=== PATIENT | male | born 1960 | race Caucasian/White ===

== ENCOUNTER 2018-05-10 00:07 | Inpatient (IN) | payer BC ==
[2018-05-10] MEDS ORDERED: Morphine 2 MG/ML SYRINGE ONE (01:20)
[2018-05-10] MEDS ORDERED: Morphine 2 MG/ML SYRINGE SLOW IVP PRN (04:32)
[2018-05-10] MEDS ORDERED: Acetaminophen 325 MG TAB PO PRN (04:33)
[2018-05-10] MEDS ORDERED: Ondansetron ODT 4 MG TAB SL PRN (04:33)
[2018-05-10] MEDS ORDERED: Ondansetron PF 4 MG/2 ML Vial IVP PRN ×3 (04:33→19:28)
[2018-05-10 04:59] VITALS: BMI 43.2
[2018-05-10 10:45] LABS: Hemoglobin 14.8 g/dL (14.0-18.0); Mean Corpuscular HGB CONC 33.6 g/dL (32.0-36.0); Mean Corpuscular Volume 95.4 fL (78.0-98.0); Mean Platelet Volume 8.1 fL (7.4-10.4); Platelet Count 187 thou/uL (130-400); RBC Distribution Width 12.2 % (11.5-14.5); Red Blood Cell (RBC) Count 4.63 mill/uL (4.70-6.10); White Blood Cell (WBC) Count 20.4 thou/uL (4.8-10.8)
[2018-05-10 10:54] LABS: Hemoglobin A1c 5.5 % (4.0-6.0)
[2018-05-10 10:55] LABS: Band 15 % (5-11); Lymphocytes 12 % (21-51); MDiff Complete? YES; Monocytes 10 % (0-10); Neutrophil 63 % (42-75); RBC Morphology Normal
[2018-05-10] MEDS: cefTRIAXone\\ROCEPHIN 1 GM in Sodium Chloride 0.9% 100 ML IVPB SCH (11:07)
--- NOTE | 2018-05-10 11:07 | RAD ---
PA AND LATERAL CHEST: History: Pre-operative evaluation. Shortness of breath. FINDINGS: The heart is enlarged. The aorta is tortuous. No lobar consolidation, pneumothoraces, kendal pulmonary edema or large pleural effusions are seen. There are degenerative changes of the spine. IMPRESSION: Cardiomegaly. POS: [facility]
[2018-05-10 11:23] LABS: Troponin I Less than 0.010 ng/mL (< 0.028)
[2018-05-10] MEDS ORDERED: cefTRIAXone\\ROCEPHIN 1 GM VIAL ONE ×2 (11:28→18:20)
--- NOTE | 2018-05-10 11:29 | HP ---
CHIEF COMPLAINT: Abdominal pain. HISTORY: Mr. Avendaño is a 57-year-old man who presented to his local emergency room with abdominal pa in, nausea, and vomiting. He states that he had been ill for over a week and at first he thought it was food poisoning and it seemed to get better, but then it came back and was more severe. He was in bed for 3 days, unable to eat because of the nausea and the pain, but then that seemed to relent yovanny ewhat, so he got back up and tried to eat again. Each time he tried to eat, the pain got worse and t he nausea got worse and on the night of his admission, he states that the pain got even more severe t cullen usual and he was having chills and fevers, so he came into the emergency room. He states that he has had alternating diarrhea and constipation throughout his illness and that when he did try to eat everything, but solid made the pain get worse. He has not had any jaundice or icterus that he has n oticed, but he has had shaking chills and fevers, although he did not take his temperature. The pain has always been present since its onset, although the severity has varied somewhat. He is most comf ortable when he is lying on his left side. The pain is located mostly under his right ribcage, but r adiates around his entire abdomen. He states that when he had the diarrhea, sometimes it was dark in color, but sometimes it was normal. He has tried ibuprofen, Tylenol and Pepto-Bismol to release the pain, but nothing has been effective. PAST MEDICAL HISTORY: Hypertension, hyperlipidemia, and borderline diabetes. He states that he was on medication for cholesterol and blood pressure, but that he took himself off of it and his numbers were still good, so he has not restarted them. He has been to see a doctor or have his numbers check ed in 5 years, however. He denies any cardiac history, but states that he did have an episode where he was admitted to a different hospital for his heart racing. He states that he was told it was kaylah use of his sodium level being too high from eating wings and that they gave him a lot of medications to bring it under control. He states that at one point they put an IV into his medication and he had a cardiac arrest of some sort, but came back from it before they had to do chest compressions or adm inister shocks. He does not know what the medication was and his states that they were told jackelyn t it was not the medication itself that cause this, but air in the IV tubing. He does not have any k nown history of heart disease and has never had a heart attack or stroke that he knows of, but his fa ther did have heart disease and had to have heart stents in his 40s. FAMILY HISTORY: Positive for coronary artery disease in his father, onset in his 40s, mini strokes i n his mother. SOCIAL HISTORY: He does not smoke or drink or use illicit drugs, but is exposed to secondhand smoke through his . MEDICATIONS: None except for dkpo-vxw-pniaqke remedies over the last week. ALLERGIES: He reports an allergy to PENICILLIN, but has not taken it since he was a child. He state s that it causes swelling and hives. PAST SURGICAL HISTORY: Ear tubes and tonsillectomy as a child. REVIEW OF SYSTEMS: Ten system review of system is negative except per HPI and the following. He sta homar that he has had whole body aches and that he has been somewhat short of breath as the onset of th is illness and weak and tired. He denies any chest pain or dyspnea on exertion or orthopnea. PHYSICAL EXAMINATION: VITAL SIGNS: T-max 99.6, T-current 98.4, heart rate 96, respirations 20, 92% saturated on room air, blood pressure 184/101. GENERAL: Reveals a pleasant gentleman who appears older than his stated age. He is not in any acute distress. He is not flushed or toxic in appearance. He is not jaundiced or icteric. HEENT: Unremarkable. NECK: Supple, without lymphadenopathy or thyroid nodules. HEART: Regular in its rate and rhythm without murmurs, rubs or gallops. LUNGS: Clear to auscultation, although breath sounds are very distant due to body habitus. ABDOMEN: Soft, obese, and slightly distended. He is very tender to palpation in the right upper ozzy drant and moderately diffusely tender to palpation. No palpable masses or hernias. EXTREMITIES: Warm and well perfused without edema. I cannot palpate pedal pulses, but he has strong popliteal pulses, no edema. NEUROLOGIC: No focal deficits. PSYCHIATRIC: Alert, oriented, and appropriate. LABORATORY DATA: White count is elevated at 16 with a left shift. Hematocrit is 43, and platelets a re 241. Electrolytes are unremarkable except for slightly low bicarbonate of 19 and a slightly eleva janine glucose of 139, bilirubin was elevated at 1.4, AST 74, ALT 77. Lipase was normal at 67. CT of t he abdomen and pelvis obtained in [place] showed an enlarged gallbladder with pericholecystic strand ing and gallstones in the gallbladder neck. He also had a fatty liver noted. No common bile duct di latation was seen and the bowel appeared grossly normal except for diverticula. ASSESSMENT: Cholelithiasis and cholecystitis. The patient was started on IV antibiotics at the outs [facility] and we will continue these. He tolerated ceftriaxone and Flagyl without any problems, so I wi ll opt to continue these. He will require laparoscopic cholecystectomy. He has a relatively high ri sk for open cholecystectomy given the severity and persistence of his symptoms over a week. If he freedman s significant infection of his gallbladder, he may require drain placement. If he has an abnormal ch olangiogram, he may require ERCP. The procedure and its inherent risks were discussed with the patie nt. These include, but are not limited to bleeding, infection, risks of anesthesia, damage to nearby structures including bowel, liver and bile duct, and need for other procedures. He understands and accepts these risks and wishes to proceed and is on the OR schedule for later today. He did not rece va any sort of cardiac workup in either ER, so I have ordered an EKG, chest x-ray and troponins, but I do not think he has any acute cardiac issue. He also has significant hypertension and has not bee n to see a doctor in 5 years, so I will ask the Hospitalist Service to see him. However, some of hyp ertension may be related to his acute illness.
[2018-05-10 11:34] LABS: ALT (SGPT) 77 U/L (8-55); AST (SGOT) 55 U/L (5-34); Albumin 3.6 g/dL (3.5-5.0); Alkaline Phosphatase 125 U/L (40-150); Anion Gap 17 mmol/L (10-20); BUN (Urea Nitrogen) 12 mg/dL (8.4-25.7); Bilirubin, Total 1.4 mg/dL (0.2-1.2); Calc. Creatinine Clearance 192 mL/min (70-130); Calcium 9.2 mg/dL (7.8-10.44); Carbon Dioxide 21 mmol/L (22-29); Chloride 103 mmol/L (98-107); Estimated GFR-MDRD Greater than 90; Globulin 3.8 g/dL (2.4-3.5); Glucose 119 mg/dL (70-105); Lipase 43 U/L (8-78); Potassium 3.7 mmol/L (3.5-5.1); Protein, Total 7.4 g/dL (6.0-8.3); Sodium 137 mmol/L (136-145)
--- NOTE | 2018-05-10 13:07 | PDOC.PN ---
- Subjective Encounter Start Date: 05/10/18 Encounter Start Time: 13:06 -: old records requested/rev pt seen in day stay before surgery, he has RUQ abdominal pain, he has very high BP and he is febrile, history obtained from him - Objective MAR Reviewed: Yes Vital Signs & Weight: Vital Signs (12 hours) Temp Pulse Resp BP Pulse Ox 05/10/18 11:48 99.9 F H 99 24 H 202/110 H 92 L 05/10/18 07:27 98.4 F 96 20 184/101 H 92 L 05/10/18 04:26 99.6 F 91 20 167/95 H 95 Weight Weight 301 lb I&O: 05/09/18 05/10/18 05/11/18 06:59 06:59 06:59 Intake Total 0 Output Total 350 Balance -350 Result Diagrams: 05/10/18 10:33 05/10/18 10:33 Radiology Reviewed by me: Yes (chest xray -cardiomegaly) EKG Reviewed by me: Yes (EKG- NSR, nonspecific changes) Phys Exam - Physical Examination Constitutional: NAD HEENT: PERRLA, moist MMs, sclera anicteric poor dentition Neck: no nodes, no JVD, supple, full ROM Respiratory: no wheezing, no rales, no rhonchi Cardiovascular: RRR, no significant murmur, no rub tachycardia Gastrointestinal: soft, no distention, positive bowel sounds obesity+ RUQ tenderness Musculoskeletal: no edema, pulses present Neurological: non-focal, normal sensation, moves all 4 limbs Lymphatic: no nodes Psychiatric: normal affect, A&O x 3 Skin: no rash, normal turgor Dx/Plan (1) Sepsis Code(s): A41.9 - SEPSIS, UNSPECIFIED ORGANISM Status: Acute Comment: due to acute cholecystitis (2) Acute cholecystitis Code(s): K81.0 - ACUTE CHOLECYSTITIS Status: Acute Comment: with abnormal LFT, and clinically RUQ pain, fever with sepsis criteria, on rocephin and flagyl , planned for lap serge today (3) Morbid obesity with BMI of 40.0-44.9, adult Code(s): E66.01 - MORBID (SEVERE) OBESITY DUE TO EXCESS CALORIES; Z68.41 - BODY MASS INDEX (BMI) 40.0-44.9, ADULT Status: Chronic Comment: dietary education and weight loss education given (4) Hypertension Code(s): I10 - ESSENTIAL (PRIMARY) HYPERTENSION Status: Chronic Comment: with hypertensive urgency due to his level of pain, will monitor and start antihypertensive meds this admission (5) Dyslipidemia Code(s): E78.5 - HYPERLIPIDEMIA, UNSPECIFIED Status: Chronic - Plan cont current plan of care, continue antibiotics, incentive spirometry * continue rocephin and flagyl * today lap serge * medically cleared for surgery * will need pain control * will start amlodipine 10 mg po daily after surgery once oral intake resumed, currently NPO for surgery * pt meets inpt criteria if not planned for discharge after surgery, will defer to primary team * medication reviewed as below * symptomatic treatment. * repeat labs tomorrow * code status-full code Review of Systems - Review of Systems Constitutional: fever, weakness Eyes: negative: Pain, Vision Change, Conjunctivae Inflammation, Eyelid Inflammation, Redness, Other ENT: negative: Ear Pain, Ear Discharge, Nose Pain, Nose Discharge, Nose Congestion, Mouth Pain, Mouth Swelling, Throat Pain, Throat Swelling, Other Respiratory: negative: Cough, Dry, Shortness of Breath, Hemoptysis, SOB with Excertion, Pleuritic Pain, Sputum, Wheezing Cardiovascular: negative: chest pain, palpitations, orthopnea, paroxysmal nocturnal dyspnea, edema, light headedness, other Gastrointestinal: Nausea, Vomiting, Abdominal Pain. negative: Diarrhea, Constipation, Melena, Hematochezia, Other Genitourinary: negative: Dysuria, Frequency, Incontinence, Hematuria, Retention , Other Musculoskeletal: negative: Neck Pain, Shoulder Pain, Arm Pain, Back Pain, Hand Pain, Leg Pain, Foot Pain, Other Skin: negative: Rash, Lesions, Abe, Bruising, Other Neurological: negative: Weakness, Numbness, Incoordination, Change in Speech, Confusion, Seizures, Other - Medications/Allergies Allergies/Adverse Reactions: Allergies Allergy/AdvReac Type Severity Reaction Status Date / Time Penicillins Allergy swelling Verified 05/10/18 04:56 Medications: Current Medications Ceftriaxone Sodium 1 gm/ (Sodium Chloride) 100 mls @ 200 mls/hr IVPB Q24HR AMBROSE Last Admin: 05/10/18 11:07 Dose: 100 mls Metronidazole 500 mg/ Device 100 mls @ 100 mls/hr IVPB Q6HR AMBROSE Sodium Chloride (Flush - Normal Saline) 10 ml IVF Q12HR AMBROSE Last Admin: 05/10/18 11:07 Dose: 10 ml Sodium Chloride (Flush - Normal Saline) 10 ml IVF PRN PRN PRN Reason: Saline Flush Last Admin: 05/10/18 05:26 Dose: 10 ml
[2018-05-10] MEDS ORDERED: cloNIDine 0.1 MG TAB PO PRN (13:13)
[2018-05-10] MEDS ORDERED: Senokot S 8.6-50 MG TAB PO PRN (13:13)
[2018-05-10] MEDS ORDERED: Sodium Chloride 0.65% Nasal 44 ML BOT EA NARE PRN (13:13)
[2018-05-10] MEDS ORDERED: Diabetic Tussin 200 MG/10 ML UDCUP PO PRN (13:13)
[2018-05-10] MEDS ORDERED: Loratadine 10 MG TAB PO PRN (13:13)
[2018-05-10] MEDS ORDERED: Bisacodyl 5 MG TAB PO PRN (13:13)
[2018-05-10] MEDS ORDERED: Loperamide HCl 2 MG CAP PO PRN (13:13)
[2018-05-10] MEDS ORDERED: Cepastat Lozenges 1 LOZ PO PRN (13:13)
[2018-05-10] MEDS ORDERED: Eucerin (Mineral Oil/Petrolatum,White) 30 gm Jar TOP PRN (13:13)
[2018-05-10] MEDS ORDERED: Zolpidem Tartrate 5 MG TAB PO PRN ×2 (13:13→19:28)
[2018-05-10] MEDS ORDERED: Ibuprofen 200 MG TAB PO PRN (13:13)
[2018-05-10] MEDS ORDERED: Artificial Tears 18 DROP/0.9 ML EA EYE PRN (13:13)
[2018-05-10] MEDS ORDERED: Acetaminophen 500 MG TAB PO PRN (13:13)
[2018-05-10] MEDS ORDERED: Bupivacaine/Epinephrine 0.25% 30 ML VIAL ONE ×2 (13:59→18:50)
[2018-05-10] MEDS ORDERED: Midazolam HCl 2 mg/2 ml Vial ONE (14:05)
[2018-05-10] MEDS ORDERED: Fentanyl 100 MCG/2 ML VIAL ONE ×2 (14:05→18:56)
[2018-05-10] MEDS ORDERED: Iothalamate Meglumine 60% 50 ML VIAL FS ONE (14:51)
[2018-05-10] MEDS ORDERED: Vecuronium 10 MG VIAL ONE (14:55)
[2018-05-10] MEDS ORDERED: ePHEDrine/0.9% NaCl/PF SYRINGE 50 mg/10 ml ONE (14:55)
[2018-05-10] MEDS ORDERED: Succinylcholine Chloride 20 MG/ML 10 ml SYRINGE FS ONE (14:55)
[2018-05-10] MEDS ORDERED: Lidocaine 1% PF 5 ML VIAL ONE (14:55)
[2018-05-10] MEDS ORDERED: Calcium Chloride 1 GM/10 ML Abboject SYRINGE ONE ×2 (14:55→17:29)
[2018-05-10] MEDS ORDERED: Ondansetron PF 4 MG/2 ML Vial ONE (14:55)
[2018-05-10] MEDS ORDERED: PHENYLEPHRINE-NS 100 MCG/ML 10 ML SYRINGE ONE ×2 (14:55→17:23)
[2018-05-10] MEDS ORDERED: Glycopyrrolate 0.2 MG/ML 5 ML SYRINGE ONE (14:55)
[2018-05-10] MEDS ORDERED: Ketorolac Tromethamine 30 MG/ML VIAL ONE (14:55)
[2018-05-10] MEDS ORDERED: PROPOFOL 200 MG/20 ML VIAL ONE (14:55)
[2018-05-10] MEDS ORDERED: Phenylephrine HCL 10 MG/ML VIAL ONE (17:23)
[2018-05-10] MEDS ORDERED: Sodium Chloride 0.9% 10 ML ONE (17:53)
[2018-05-10] MEDS ORDERED: metroNIDAZOLE 500 MG/100 ML BAG ONE (18:20)
[2018-05-10] MEDS ORDERED: SUGAMMADEX SODIUM 500 MG/5 ML VIAL ONE (19:04)
[2018-05-10] MEDS ORDERED: SUGAMMADEX SODIUM 200 MG/2 ML VIAL ONE (19:04)
[2018-05-10] MEDS ORDERED: Naloxone HCl 0.4 mg/ml Vial IV PRN (19:28)
[2018-05-10] MEDS ORDERED: Promethazine HCl 25 MG/ML VIAL IM PRN ×2 (19:28)
[2018-05-10] MEDS ORDERED: fentaNYL Citrate/PF 2,000 MCG in Sodium Chloride 0.9% 60 ML IV PRN (19:28)
[2018-05-10] MEDS ORDERED: diphenhydrAMINE 50 MG/ML VIAL IVP PRN (19:28)
[2018-05-10] MEDS ORDERED: Ondansetron HCl/PF 4 MG/2 ML Vial IVP PRN (19:28)
[2018-05-10] MEDS ORDERED: diphenhydrAMINE 25 MG CAP PO PRN (19:28)
[2018-05-10] MEDS ORDERED: diphenhydrAMINE 50 MG/ML VIAL IM PRN (19:28)
[2018-05-10] MEDS ORDERED: Promethazine HCl 25 MG/ML VIAL SLOW IVP PRN (19:28)
[2018-05-10] MEDS ORDERED: Communication Order-Pharmacy FS SCH (19:30)
[2018-05-10] MEDS: metroNIDAZOLE 500 MG in Premix Bag 1 BAG IVPB SCH (19:37)
--- NOTE | 2018-05-10 19:54 | RAD ---
INTRAOPERATIVE CHOLANGIOGRAM 05/10/18 INDICATION: Cholecystectomy. COMPARISON: Prior CT of the abdomen and pelvis dated 05/09/18. FLUOROSCOPIC TIME: 22 seconds. TOTAL EXPOSURE: 13.3 mGy. FINDINGS: Submitted images demonstrate canalization of the cystic duct. There is application of the common bile duct with flow into the duodenum. There is retrograde opacification of the common hepatic duct and i ntrahepatic biliary duct. No definite intraluminal filling defect is evident. IMPRESSION: No definite intraluminal filling defect demonstrated to suggest a common bile duct stone. POS: [facility]
--- NOTE | 2018-05-10 21:53 | RAD ---
CHEST ONE VIEW: 05/10/17 INDICATION: History of cholecystectomy. FINDINGS: There are new bibasilar air space opacities. There is a new right IJ central venous catheter. No pneu mothorax is evident. Cardiomegaly persists. Osseous structures are unchanged. IMPRESSION: 1. New bibasilar air space opacity may reflect subsegmental volume loss. Component of aspiration cannot be entirely excluded. Would recommend radiographic followup. 2. Right IJ central venous catheter projecting in the region of the SVC. No pneumothorax demonst rated. POS: [facility]
[2018-05-11] MEDS: Famotidine/PF 20 mg/2ml Vial SLOW IVP SCH ×3 (00:42→21:23)
[2018-05-11] MEDS: metroNIDAZOLE 500 MG in Premix Bag 1 BAG IVPB SCH ×5 (00:43→23:42)
[2018-05-11] MEDS: Lactated Ringer's 1,000 ML IV SCH ×3 (00:43→18:38)
--- NOTE | 2018-05-11 05:06 | OP ---
PROCEDURE: Laparoscopic converted to open cholecystectomy with cholangiogram. SURGEON: Shila Mcdaniels M.D. AGENT CONTRACT CLERK: Rosales Lara M.D. PREOPERATIVE DIAGNOSES: Cholelithiasis and cholecystitis. POSTOPERATIVE DIAGNOSES: Cholelithiasis and cholecystitis, severe and gangrenous. HISTORY OF PRESENT ILLNESS: Mr. Avendaño is a 57-year-old man with an over 1 week history of severe ab dominal pain and nausea. He was found to have evidence of severe cholecystitis on CT and recommendat ion was made to proceed with laparoscopic cholecystectomy with intraoperative cholangiogram due to mi ldly elevated LFTs. PROCEDURE IN DETAIL: After informed consent was obtained and appropriate preoperative antibiotics co ntinued, the patient was taken to the operating room. He was placed in supine position and general e ndotracheal anesthesia was administered. He was prepped and draped in a standard sterile fashion and local anesthesia infused to the skin and subcutaneous tissues at the level of the umbilicus. Transv erse skin incision was made. The fascia was elevated and a Veress needle placed into the abdominal c avity without difficulty. Opening pressure was less than 5 and carbon dioxide gas easily insufflated to an intra-abdominal pressure of 15, which the patient tolerated well. The Veress needle was withd rawn and a Coyle port advanced under direct vision into the abdominal cavity, which was carefully examined. There was no evidence of Veress needle or of trocar injury and no adhesions at the level of the umbilicus, but the gallbladder was noted to be completely obscured by omental adhesions. Loca l anesthesia was infused to the skin and subcutaneous tissues at the epigastric, right upper quadrant , and right lateral abdominal sites and trocars were placed under direct vision of the gallbladder. The omentum was able to be dissected off of the gallbladder using blunt dissection through the avascu lar plane. These adhesions appeared to be subacute in nature and the gallbladder was hemorrhagic, in flamed and appeared necrotic in areas. It was too tight to grasp so over 150 mL of purulent appearin g bile were aspirated from the gallbladder. This was sent for Gram stain and culture. Following thi s, the fundus was able to be grasped and dissection carried down toward the infundibulum which was gr asped and retracted laterally. The serosa was stripped inferiorly at this level and the duct started to be identified; however, as dissection was carried out medial to this, we try to identify the cyst ic artery. There was profuse arterial bleeding. This was unable to be controlled with clips, but wa s able to be controlled with a clamp. However, due to difficulty seeing this area well laparoscopica lly, the decision was made to convert to an open procedure leaving the clamp in place and carefully o bserving to make sure that there was no ongoing bleeding. The skin was incised between the epigastri c and the right upper quadrant trocar sites and dissection carried down using Bovie electrocautery th rough the anterior rectus sheath. The rectus muscle was divided and the posterior sheath also divide d entering the abdomen, the trocars removed, but the clamp was left in place. Dissection was carried down through the gallbladder bed using a Bovie electrocautery proceeding from the fundus toward the infundibulum. A Bookwalter retractor was placed to obtain exposure of the operative field and the ar ea of the clamp where the previous bleeding had been noted was carefully monitored to make sure that there was no recurrent bleeding. Even after completely freeing the gallbladder from the gallbladder bed; however, visualization of the area which had previously been bleeding was quite difficult, so Dr Og Lara was consulted to assist with the case. As additional retractors were being placed to try to gain better visualization of this area, recurrent bleeding was noted where the clamp was in place. T he clamp was removed and pressure held with a sponge stick in this area. There was some continued bl eeding; however, which was arterial in nature. Additional long instruments and clamps were obtained and several attempts made to place a clamp on the area of bleeding without success. Pressure was hel d with a sponge stick as additional retractors were obtained. Finally, the area of the bleeding was able to be adequately expose that appeared to be a slight injury to the hepatic artery where the cyst ic artery had likely avulsed off of it. During dissection due to the severely fibrotic nature of the tissues in that area, a clamp was able to be placed over the area of bleeding and the bleeding was u ncontrolled; however, during this time. The patient had lost almost a liter of blood so blood and FF P was ordered and the massive transfusion protocol instituted and a right internal jugular catheter p laced using ultrasound guidance using the Seldinger technique to assist in resuscitation. Once the p atient was stabilized and transfused and all equipment was ready, a 2-0 suture was used to close the side hole in the artery with excellent technical result and cessation of all bleeding. Attention was then turned to the completion of the cholecystectomy. The neck of the gallbladder had been dissecte d free, so the top portion of the gallbladder was resected and a cholangiogram placed into the cystic duct from the inside of the gallbladder and clamped with a right-angle across the neck of the gallbl adder. The cholangiogram was obtained which showed good filling of the common bile duct with free fl ow into the duodenum as well as normal retrograde flow up past the bifurcation. No filling defects o r obstruction were seen. A Vicryl tie was secured around the neck of the gallbladder and the remaind er of the gallbladder was resected and sent with the specimen. The wound was irrigated and hemostasi s confirmed. A KAYLEY drain was placed through the right lateral trocar site and placed in the bed of th e gallbladder and secured to the skin with a suture. Seprafilm was placed and the posterior sheath w as closed under direct vision with a PDS suture. Irrigation was again carried out and the anterior s jose closed with another layer of PDS suture. Subcutaneous tissues were irrigated and additional lo vern anesthesia infused for postoperative pain management. The subcutaneous tissues were approximated interrupted with 3-0 Vicryl sutures, and the skin incisions were all closed with skin mitchell. Ster ile dressings were placed and the patient was extubated and taken to recovery in good condition. Est imated blood loss was 1 liter. SPECIMEN: Gallbladder and contents with bile sent for Gram stain and culture.
[2018-05-11 06:07] LABS: ALT (SGPT) 324 U/L (8-55); AST (SGOT) 519 U/L (5-34); Albumin 2.8 g/dL (3.5-5.0); Alkaline Phosphatase 97 U/L (40-150); Anion Gap 17 mmol/L (10-20); BUN (Urea Nitrogen) 15 mg/dL (8.4-25.7); Bilirubin, Total 1.3 mg/dL (0.2-1.2); Calc. Creatinine Clearance 197 mL/min (70-130); Calcium 8.6 mg/dL (7.8-10.44); Carbon Dioxide 17 mmol/L (22-29); Chloride 109 mmol/L (98-107); Estimated GFR-MDRD Greater than 90; Glucose 112 mg/dL (70-105); Potassium 4.8 mmol/L (3.5-5.1); Protein, Total 5.8 g/dL (6.0-8.3); Sodium 138 mmol/L (136-145)
[2018-05-11 08:33] LABS: Band 8 % (5-11); Hemoglobin 10.8 g/dL (14.0-18.0); Lymphocytes 6 % (21-51); MDiff Complete? YES; Mean Corpuscular HGB CONC 33.3 g/dL (32.0-36.0); Mean Corpuscular Hemoglobin 32.1 pg (27.0-31.0); Mean Corpuscular Volume 96.4 fL (78.0-98.0); Mean Platelet Volume 8.3 fL (7.4-10.4); Monocytes 4 % (0-10); Neutrophil 81 % (42-75); PLT Morphology Comment Appears Adequate; Platelet Count 164 thou/uL (130-400); Polychromasia SLIGHT = 2-3 cells (100X) (0-2/hpf); RBC Distribution Width 12.4 % (11.5-14.5); Reactive Lymphocytes 1 % (0-10); Red Blood Cell (RBC) Count 3.37 mill/uL (4.70-6.10); White Blood Cell (WBC) Count 15.5 thou/uL (4.8-10.8)
[2018-05-11] MEDS: Amlodipine 10 MG TAB PO SCH (09:29)
--- NOTE | 2018-05-11 09:46 | PDOC.PN ---
- Subjective Encounter Start Date: 05/11/18 Encounter Start Time: 07:40 -: old records requested/rev pt has mild pain at surgical site, controlled with pharmacy services director, no fever, now BP well controlled, he is NPO Patient seen and examined. No new complaints. No overnight events - Objective MAR Reviewed: Yes Vital Signs & Weight: Vital Signs (12 hours) Temp Pulse Resp BP BP Pulse Ox 05/11/18 09:29 80 116/60 05/11/18 08:00 98.4 F 80 15 116/60 93 L 05/11/18 04:15 99.5 F 100 20 138/75 95 05/11/18 02:16 78 110/63 05/11/18 01:19 83 16 106/61 92 L 05/11/18 00:00 83 18 92/61 Weight Admit Weight 301 lb Weight 301 lb I&O: 05/10/18 05/11/18 05/12/18 06:59 06:59 06:59 Intake Total 0 1655 Output Total 350 100 235 Balance -350 -100 1420 Result Diagrams: 05/11/18 06:13 05/11/18 05:21 Additional Labs: Accuchecks 05/10/18 16:25 POC Glucose 142 H Radiology Reviewed by me: Yes Phys Exam - Physical Examination Constitutional: NAD HEENT: PERRLA, moist MMs, sclera anicteric Neck: no JVD, supple Respiratory: no wheezing, no rales, no rhonchi Cardiovascular: RRR, no significant murmur, no rub Gastrointestinal: soft, no distention surgical site with dressing Musculoskeletal: no edema, pulses present Neurological: non-focal, normal sensation, moves all 4 limbs Lymphatic: no nodes Psychiatric: normal affect, A&O x 3 Skin: no rash, normal turgor Dx/Plan (1) Sepsis Code(s): A41.9 - SEPSIS, UNSPECIFIED ORGANISM Status: Acute Qualifiers: Sepsis type: Escherichia coli Qualified Code(s): A41.51 - Sepsis due to Escherichia coli [E. coli] Comment: due to acute cholecystitis (2) Acute cholecystitis Code(s): K81.0 - ACUTE CHOLECYSTITIS Status: Acute Comment: with abnormal LFT, and clinically RUQ pain, fever with sepsis criteria on admission, now on rocephin, flagyl, levaquin, s/p open chlecystectomy (3) Morbid obesity with BMI of 40.0-44.9, adult Code(s): E66.01 - MORBID (SEVERE) OBESITY DUE TO EXCESS CALORIES; Z68.41 - BODY MASS INDEX (BMI) 40.0-44.9, ADULT Status: Chronic Comment: dietary education and weight loss education given (4) Hypertension Code(s): I10 - ESSENTIAL (PRIMARY) HYPERTENSION Status: Chronic Comment: with hypertensive urgency due to his level of pain, will monitor and start antihypertensive meds this admission (5) Dyslipidemia Code(s): E78.5 - HYPERLIPIDEMIA, UNSPECIFIED Status: Chronic - Plan cont current plan of care, continue antibiotics, incentive spirometry, DVT proph w/lovenox * continue lovenox for DVT prophylaxis * 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 * continue rocephin, levaquin and flagyl, follow on culture result * repeat labs tomorrow * incentive spirometry * post operative care as per surgeon * pain control with pain meds as below * medication reviewed as below * symptomatic treatment Review of Systems - Review of Systems Eyes: negative: Pain, Vision Change, Conjunctivae Inflammation, Eyelid Inflammation, Redness, Other ENT: negative: Ear Pain, Ear Discharge, Nose Pain, Nose Discharge, Nose Congestion, Mouth Pain, Mouth Swelling, Throat Pain, Throat Swelling, Other Respiratory: negative: Cough, Dry, Shortness of Breath, Hemoptysis, SOB with Excertion, Pleuritic Pain, Sputum, Wheezing Cardiovascular: negative: chest pain, palpitations, orthopnea, paroxysmal nocturnal dyspnea, edema, light headedness, other Gastrointestinal: negative: Nausea, Vomiting, Abdominal Pain, Diarrhea, Constipation, Melena, Hematochezia, Other Genitourinary: negative: Dysuria, Frequency, Incontinence, Hematuria, Retention , Other Musculoskeletal: negative: Neck Pain, Shoulder Pain, Arm Pain, Back Pain, Hand Pain, Leg Pain, Foot Pain, Other Skin: negative: Rash, Lesions, Abe, Bruising, Other - Medications/Allergies Allergies/Adverse Reactions: Allergies Allergy/AdvReac Type Severity Reaction Status Date / Time Penicillins Allergy swelling Verified 05/10/18 04:56 Medications: Current Medications Acetaminophen (Tylenol) 1,000 mg PO Q6H PRN PRN Reason: Mild Pain (1-3) Albuterol/Ipratropium (Duoneb) 3 ml NEB Q6H PRN PRN Reason: SOB &/or Wheezing Amlodipine Besylate (Norvasc) 10 mg PO DAILY [facility] Last Admin: 05/11/18 09:29 Dose: Not Given Artificial Tears (Tears Naturale) 2 drop EA EYE PRN PRN PRN Reason: Dry Eyes Bisacodyl (Dulcolax) 10 mg PO DAILYPRN PRN PRN Reason: Constipation Clonidine (Catapres) 0.1 mg PO Q4H PRN PRN Reason: SBP Greater Than 170 Diphenhydramine HCl (Benadryl) 25 mg IVP Q3H PRN PRN Reason: Itching Diphenhydramine HCl (Benadryl) 25 mg PO Q3H PRN PRN Reason: Itching Diphenhydramine HCl (Benadryl) 25 mg IM Q3H PRN PRN Reason: Itching Famotidine (Pepcid) 20 mg SLOW IVP BID [facility] Last Admin: 05/11/18 09:30 Dose: 20 mg Guaifenesin (Robitussin Sf) 200 mg PO Q4H PRN PRN Reason: Cough Ceftriaxone Sodium 1 gm/ (Sodium Chloride) 100 mls @ 200 mls/hr IVPB Q24HR [facility] Last Admin: 05/10/18 11:07 Dose: 100 mls Metronidazole 500 mg/ Device 100 mls @ 100 mls/hr IVPB Q6HR [facility] Last Admin: 05/11/18 06:25 Dose: 100 mls Levofloxacin 500 mg/ Device 100 mls @ 100 mls/hr IVPB 1400 [facility] Last Admin: 05/10/18 19:38 Dose: Not Given Fentanyl Citrate 2,000 mcg/ (Sodium Chloride) 100 mls @ 0 mls/hr IV INF PRN PRN Reason: Pain Lactated Ringer's (Lactated Ringer's) 1,000 mls @ 100 mls/hr IV .Q10H [facility] Last Admin: 05/11/18 09:33 Dose: 1,000 mls Ibuprofen (Motrin) 400 mg PO Q4H PRN PRN Reason: Fever > 101 Loperamide HCl (Imodium) 2 mg PO PRN PRN PRN Reason: Diarrhea/Loose Stools Loratadine (Claritin) 10 mg PO DAILYPRN PRN PRN Reason: Sinus Symptoms Mineral Oil/White Petrolatum (Eucerin Cream) 0 gm TOP BIDPRN PRN PRN Reason: Dry Skin Morphine Sulfate (Morphine) 4 mg SLOW IVP Q4H PRN PRN Reason: Breakthrough Pain Naloxone HCl (Narcan) 0.2 mg IV Q5MIN PRN PRN Reason: Opiate Reversal Ondansetron HCl (Zofran Odt) 4 mg PO Q6H PRN PRN Reason: Nausea/Vomiting Ondansetron HCl (Zofran) 4 mg IVP Q6H PRN PRN Reason: Nausea/Vomiting Promethazine HCl (Phenergan) 12.5 mg IM Q4H PRN PRN Reason: Nausea/Vomiting Senna/Docusate Sodium (Senokot S) 2 tab PO BID PRN PRN Reason: Constipation Sodium Chloride (Flush - Normal Saline) 10 ml IVF Q12HR [facility] Last Admin: 05/10/18 22:05 Dose: Not Given Sodium Chloride (Flush - Normal Saline) 10 ml IVF PRN PRN PRN Reason: Saline Flush Last Admin: 05/10/18 05:26 Dose: 10 ml Sodium Chloride ([place] Nasal [place] 0.65%) 0 ml EA NARE QIDPRN PRN PRN Reason: Nasal Congestion Throat Lozenges (Cepastat Lozenges) 1 melyssa PO Q2H PRN PRN Reason: Sore Throat Zolpidem Tartrate (Ambien) 5 mg PO HSPRN PRN PRN Reason: Insomnia
[2018-05-11] MEDS ORDERED: Enoxaparin Sodium 40 MG/0.4 ML SYRINGE SC SCH (10:30)
--- NOTE | 2018-05-11 11:01 | PDOC.OP ---
Operative Note - Operative Note Operative Note: Patient is feeling better today. His pain is controlled with a UNION CONTRACT REPRESENTATIVE and he has been able to get up out of bed although he has not yet ambulated in the halls. He has not had any lightheadedness or chest pain, although he continues to feel like he is not breathing quite normally. Abdomen is soft and nondistended. There is minimal serosanguineous drainage in the KAYLEY bulb and only 35 mL of drainage last night. Bowel sounds are present. Dressings are clean without evidence of drainage or bleeding. Assessment/plan: Status post laparoscopic converted to open cholecystectomy for severe gangrenous cholecystitis with severe bleeding. He has been stable overnight and his H&H are appropriate for the amount of bleeding and posttransfusion status. No evidence of ongoing bleeding or bile leak. He is tolerating his clear liquid diet and can advance as tolerated. Currently he is not feeling up to solid food, so I'm going to leave him on the UNION CONTRACT REPRESENTATIVE for today. Hopefully by tomorrow he will be on a low-fat regular diet and we can get him off the UNION CONTRACT REPRESENTATIVE and on to oral pain medications. Incentive spirometry training and the walking program have been ordered. Dr. Lara is covering for the next few days as I am out of town.
[2018-05-11] MEDS: cefTRIAXone\\ROCEPHIN 1 GM in Sodium Chloride 0.9% 100 ML IVPB SCH (11:03)
[2018-05-11] MEDS: Ketorolac Tromethamine 30 MG/ML VIAL IVP SCH ×3 (12:14→23:42)
[2018-05-11] MEDS: Acetaminophen 1,000 MG in Premix Bag 1 BAG IVPB SCH ×3 (12:14→23:42)
[2018-05-12] MEDS: Lactated Ringer's 1,000 ML IV SCH (02:50)
[2018-05-12] MEDS: metroNIDAZOLE 500 MG in Premix Bag 1 BAG IVPB SCH ×4 (05:56→23:40)
[2018-05-12] MEDS: Acetaminophen 1,000 MG in Premix Bag 1 BAG IVPB SCH (05:57)
[2018-05-12] MEDS: Ketorolac Tromethamine 30 MG/ML VIAL IVP SCH (05:57)
[2018-05-12 06:20] LABS: #Eosinphils 0.2 thou/uL (0.0-0.7); #Lymphocytes 1.5 thou/uL (1.20-3.40); #Neutrophils 11.2 thou/uL (1.40-6.50); %Basophils 0.1 % (0.0-1.0); %Eosinophils 1.2 % (0.0-10.0); %Lymphocytes 10.9 % (21.0-51.0); %Neutrophils 80.8 % (42.0-75.0); Hemoglobin 9.5 g/dL (14.0-18.0); Mean Corpuscular HGB CONC 31.9 g/dL (32.0-36.0); Mean Corpuscular Hemoglobin 31.2 pg (27.0-31.0); Mean Corpuscular Volume 97.7 fL (78.0-98.0); Mean Platelet Volume 8.6 fL (7.4-10.4); Platelet Count 178 thou/uL (130-400); RBC Distribution Width 12.3 % (11.5-14.5); Red Blood Cell (RBC) Count 3.03 mill/uL (4.70-6.10); White Blood Cell (WBC) Count 13.9 thou/uL (4.8-10.8)
[2018-05-12 06:35] LABS: ALT (SGPT) 344 U/L (8-55); AST (SGOT) 361 U/L (5-34); Albumin 2.5 g/dL (3.5-5.0); Alkaline Phosphatase 80 U/L (40-150); Anion Gap 6 mmol/L (10-20); BUN (Urea Nitrogen) 16 mg/dL (8.4-25.7); Bilirubin, Total 0.9 mg/dL (0.2-1.2); Calc. Creatinine Clearance 204 mL/min (70-130); Carbon Dioxide 29 mmol/L (22-29); Chloride 104 mmol/L (98-107); Estimated GFR-MDRD Greater than 90; Globulin 2.7 g/dL (2.4-3.5); Glucose 103 mg/dL (70-105); Potassium 3.3 mmol/L (3.5-5.1); Protein, Total 5.2 g/dL (6.0-8.3); Sodium 136 mmol/L (136-145)
[2018-05-12] MEDS: Enoxaparin Sodium 40 MG/0.4 ML SYRINGE SC SCH (08:24)
[2018-05-12] MEDS: Amlodipine 10 MG TAB PO SCH (08:25)
[2018-05-12] MEDS: Famotidine/PF 20 mg/2ml Vial SLOW IVP SCH ×2 (08:25→21:02)
--- NOTE | 2018-05-12 09:18 | PQF ---
CLINICAL DOCUMENTATION IMPROVEMENT CLARIFICATION FORM: ICD-10 Updated PLEASE DO AN ADDENDUM TO THE PROGRESS NOTE WITH ANY DOCUMENTATION UPDATES OR ADDITIONS AND CARRY THROUGH TO DC SUMMARY. THANK YOU. DATE: ATTN: DR. ESTRADA Please exercise your independent, professional judgment in responding to the clarification form. Clinical indicators are provided on the bottom of this form for your review. Please check appropriate box(s): In the description of the operative procedure, the following was noted by the surgeon "...FINALLY, THE AREA OF THE BLEEDING WAS ABLE TO ADEQUATELY EXPOSE THAT APPEARED TO A SLIGHT INJURY TO THE HEPATIC ARTERY WHERE THE CYSTIC ARTERY HAD LIKELY AVULSED OFF OF IT" If possible, please further clarify if this was: [ ] Incidental occurrence inherent in the surgical procedure [ ] Complication of the procedure [ ] Other [ ] Unable to determine For continuity of documentation, please document condition throughout progress notes and discharge summary. Thank You. CLINICAL INDICATORS - SIGNS / SYMPTOMS / LABS Page 1 starting with "THESE ADHESIONS APPEARED TO BE SUBACUTE IN NATURE & THE GALLBLADDER WAS HEMORRHAGIC, INFLAMED & APPEARED NECROTIC IN AREAS" and continuing into page 2 of operative report as quoted above. RISK FACTORS: ACUTE CHOLECYSTITIS W/GANGRENOUS GALLBLADDER MORBID OBESITY TREATMENTS: SUTURE OF HEPATIC ARTERY AT SITE OF INJURY INTRA-OPERATIVE TRANSFUSION OF 1U PRBC & 1U FFP THANK YOU! Salud (This form is maintained as a part of the permanent medical record) 2015 [email or web address]. All Rights Reserved Salud Meyers RN, BSN [email or web address] Office: [phone] [facility]
--- NOTE | 2018-05-12 09:57 | PDOC.PN ---
- Subjective Encounter Start Date: 05/12/18 Encounter Start Time: 07:40 pt's pain controlled with OIL PIPELINE DISPATCHER, no fever, tolerating diet - Objective MAR Reviewed: Yes Vital Signs & Weight: Vital Signs (12 hours) Temp Pulse Resp BP BP Pulse Ox 05/12/18 08:25 77 122/79 05/12/18 08:00 98.2 F 77 18 122/79 93 L 05/12/18 03:53 97.5 F L 73 18 97/64 92 L 05/11/18 23:33 98.8 F 85 18 129/68 92 L Weight Admit Weight 301 lb Weight 301 lb I&O: 05/11/18 05/12/18 05/13/18 06:59 06:59 06:59 Intake Total 5935 Output Total 100 925 Balance -100 5010 Result Diagrams: 05/12/18 05:50 05/12/18 05:50 Phys Exam - Physical Examination Constitutional: NAD HEENT: PERRLA, moist MMs, sclera anicteric Neck: no JVD, supple Respiratory: no wheezing, no rales, no rhonchi Cardiovascular: RRR, no significant murmur, no rub Gastrointestinal: soft, non-tender, no distention, positive bowel sounds abdominal binder+ Musculoskeletal: no edema, pulses present Neurological: non-focal, normal sensation, moves all 4 limbs Lymphatic: no nodes Psychiatric: normal affect, A&O x 3 Skin: no rash, normal turgor Dx/Plan (1) Sepsis Code(s): A41.9 - SEPSIS, UNSPECIFIED ORGANISM Status: Acute Qualifiers: Sepsis type: Escherichia coli Qualified Code(s): A41.51 - Sepsis due to Escherichia coli [E. coli] Comment: due to acute cholecystitis (2) Acute cholecystitis Code(s): K81.0 - ACUTE CHOLECYSTITIS Status: Acute Comment: with abnormal LFT, and clinically RUQ pain, fever with sepsis criteria on admission, now on rocephin, flagyl, levaquin, s/p open chlecystectomy (3) Morbid obesity with BMI of 40.0-44.9, adult Code(s): E66.01 - MORBID (SEVERE) OBESITY DUE TO EXCESS CALORIES; Z68.41 - BODY MASS INDEX (BMI) 40.0-44.9, ADULT Status: Chronic Comment: dietary education and weight loss education given (4) Hypertension Code(s): I10 - ESSENTIAL (PRIMARY) HYPERTENSION Status: Chronic Comment: with hypertensive urgency due to his level of pain, will monitor and start antihypertensive meds this admission (5) Dyslipidemia Code(s): E78.5 - HYPERLIPIDEMIA, UNSPECIFIED Status: Chronic - Plan cont current plan of care, continue antibiotics * follow up on culture result and change to antibiotics accordingly * OIL PIPELINE DISPATCHER now can be changed to oral pain meds as tolerated * medication reviewed as below * symptomatic treatment * ambulate as tolerated. Review of Systems - Review of Systems Eyes: negative: Pain, Vision Change, Conjunctivae Inflammation, Eyelid Inflammation, Redness, Other ENT: negative: Ear Pain, Ear Discharge, Nose Pain, Nose Discharge, Nose Congestion, Mouth Pain, Mouth Swelling, Throat Pain, Throat Swelling, Other Respiratory: negative: Cough, Dry, Shortness of Breath, Hemoptysis, SOB with Excertion, Pleuritic Pain, Sputum, Wheezing Cardiovascular: negative: chest pain, palpitations, orthopnea, paroxysmal nocturnal dyspnea, edema, light headedness, other Gastrointestinal: Abdominal Pain. negative: Nausea, Vomiting, Diarrhea, Constipation, Melena, Hematochezia, Other Genitourinary: negative: Dysuria, Frequency, Incontinence, Hematuria, Retention , Other Musculoskeletal: negative: Neck Pain, Shoulder Pain, Arm Pain, Back Pain, Hand Pain, Leg Pain, Foot Pain, Other Skin: negative: Rash, Lesions, Abe, Bruising, Other - Medications/Allergies Allergies/Adverse Reactions: Allergies Allergy/AdvReac Type Severity Reaction Status Date / Time Penicillins Allergy swelling Verified 05/10/18 04:56 Medications: Current Medications Albuterol/Ipratropium (Duoneb) 3 ml NEB Q6H PRN PRN Reason: SOB &/or Wheezing Amlodipine Besylate (Norvasc) 10 mg PO DAILY [facility] Last Admin: 05/12/18 08:25 Dose: 10 mg Artificial Tears (Tears Naturale) 2 drop EA EYE PRN PRN PRN Reason: Dry Eyes Bisacodyl (Dulcolax) 10 mg PO DAILYPRN PRN PRN Reason: Constipation Clonidine (Catapres) 0.1 mg PO Q4H PRN PRN Reason: SBP Greater Than 170 Diphenhydramine HCl (Benadryl) 25 mg IVP Q3H PRN PRN Reason: Itching Diphenhydramine HCl (Benadryl) 25 mg PO Q3H PRN PRN Reason: Itching Diphenhydramine HCl (Benadryl) 25 mg IM Q3H PRN PRN Reason: Itching Enoxaparin Sodium (Lovenox) 40 mg SC 0900 [facility] Last Admin: 05/12/18 08:24 Dose: 40 mg Famotidine (Pepcid) 20 mg SLOW IVP BID [facility] Last Admin: 05/12/18 08:25 Dose: 20 mg Guaifenesin (Robitussin Sf) 200 mg PO Q4H PRN PRN Reason: Cough Ceftriaxone Sodium 1 gm/ (Sodium Chloride) 100 mls @ 200 mls/hr IVPB Q24HR [facility] Last Admin: 05/11/18 11:03 Dose: 100 mls Metronidazole 500 mg/ Device 100 mls @ 100 mls/hr IVPB Q6HR [facility] Last Admin: 05/12/18 05:56 Dose: 100 mls Levofloxacin 500 mg/ Device 100 mls @ 100 mls/hr IVPB 1400 [facility] Last Admin: 05/11/18 15:08 Dose: 100 mls Lactated Ringer's (Lactated Ringer's) 1,000 mls @ 100 mls/hr IV .Q10H [facility] Last Admin: 05/12/18 02:50 Dose: Not Given Ibuprofen (Motrin) 400 mg PO Q4H PRN PRN Reason: Fever > 101 Ketorolac Tromethamine (Toradol) 30 mg IVP Q6HR [facility] Stop: 05/13/18 06:01 Last Admin: 05/12/18 05:57 Dose: 30 mg Loperamide HCl (Imodium) 2 mg PO PRN PRN PRN Reason: Diarrhea/Loose Stools Loratadine (Claritin) 10 mg PO DAILYPRN PRN PRN Reason: Sinus Symptoms Mineral Oil/White Petrolatum (Eucerin Cream) 0 gm TOP BIDPRN PRN PRN Reason: Dry Skin Morphine Sulfate (Morphine) 4 mg SLOW IVP Q4H PRN PRN Reason: Breakthrough Pain Naloxone HCl (Narcan) 0.2 mg IV Q5MIN PRN PRN Reason: Opiate Reversal Ondansetron HCl (Zofran Odt) 4 mg PO Q6H PRN PRN Reason: Nausea/Vomiting Ondansetron HCl (Zofran) 4 mg IVP Q6H PRN PRN Reason: Nausea/Vomiting Promethazine HCl (Phenergan) 12.5 mg IM Q4H PRN PRN Reason: Nausea/Vomiting Senna/Docusate Sodium (Senokot S) 2 tab PO BID PRN PRN Reason: Constipation Sodium Chloride (Flush - Normal Saline) 10 ml IVF Q12HR [facility] Last Admin: 05/11/18 21:23 Dose: Not Given Sodium Chloride (Flush - Normal Saline) 10 ml IVF PRN PRN PRN Reason: Saline Flush Last Admin: 05/10/18 05:26 Dose: 10 ml Sodium Chloride ([place] Nasal [place] 0.65%) 0 ml EA NARE QIDPRN PRN PRN Reason: Nasal Congestion Throat Lozenges (Cepastat Lozenges) 1 melyssa PO Q2H PRN PRN Reason: Sore Throat Zolpidem Tartrate (Ambien) 5 mg PO HSPRN PRN PRN Reason: Insomnia
[2018-05-12] MEDS ORDERED: HYDROcodone/Acetaminophen 10/325 mg Tablet PO PRN ×2 (10:13)
[2018-05-12] MEDS ORDERED: traMADol HCl 50 MG TAB PO PRN ×2 (10:13)
[2018-05-12] MEDS ORDERED: Fentanyl 100 MCG/2 ML VIAL SLOW IVP PRN (10:15)
--- NOTE | 2018-05-12 11:00 | PRG ---
DATE OF SERVICE: 05/12/2018 SUBJECTIVE: Mr. Avendaño is a 57-year-old man who is postoperative day #2, status post laparoscopic co nverted to open cholecystectomy. The patient is awake and alert today, reporting adequate pain contr ol. He is passing flatus and has had bowel movement this morning. He tolerates a clear liquid diet. Urinary output has been adequate. The Chas-Bonilla drain returned 125 mL of serous fluid over the last 24 hours. OBJECTIVE: VITAL SIGNS: This morning includes blood pressure 122/79, pulse is 77, respiration rate is 18, tempe rature is 98.2 degrees Fahrenheit, oxygen saturation 93% on room air. HEENT: Reveals no scleral icterus present. HEART: Reveals regular rate and rhythm, no murmurs or gallops auscultated. CHEST: Clear to auscultation bilaterally. Breathing is regular and unlabored. ABDOMEN: Soft and obese. A Wayne incision is intact, clean, and dry. He has incisional tenderness to palpation with no rebound tenderness present. The Chas-Bonilla drain returns a moderate amount of nonbilious, serous fluid. EXTREMITIES: With 2+ radial and pedal pulses bilaterally. No ankle edema is present. NEUROLOGIC: Reveals no focal deficits present. LABORATORY DATA: Today includes a CBC with 13,900 white blood cells, hemoglobin and hematocrit are s table at 9.5 and 29.6 respectively. Platelet count is also stable at 178,000. Metabolic profile: S odium 136, potassium is 3.3, chloride is 104, bicarbonate is 29, BUN 16, creatinine 0.77, glucose is 103. AST and ALT are normalizing now at 261 and 344 respectively in contrast to 519 and 324 yesterda y. IMPRESSION: 1. Postop day #2, status post laparoscopic converted to open cholecystectomy. 2. The patient is hemodynamically stable. 3. Acute hypokalemia. 4. Resolving hepatic transaminitis. PLAN: 1. Discontinue IV fluids and PICK UP WORKER. 2. Diet will be advanced to regular. 3. P.o. analgesics will be commenced. 4. Activity will be increased ad emily. The above findings and plan discussed with the patient who indicates understanding of the information given. Note that I am seeing this patient on behalf of Dr. Mcdaniels.
[2018-05-12] MEDS: traMADol HCl 50 MG TAB PO SCH ×3 (11:15→23:37)
[2018-05-12] MEDS: Acetaminophen 500 MG TAB PO SCH ×3 (11:16→23:37)
[2018-05-12] MEDS: cefTRIAXone\\ROCEPHIN 1 GM in Sodium Chloride 0.9% 100 ML IVPB SCH (11:25)
[2018-05-12] MEDS ORDERED: Ibuprofen 200 MG TAB PO SCH (14:00)
[2018-05-12] MEDS: Ibuprofen 800 MG TAB PO SCH ×2 (14:29→21:01)
[2018-05-12] MEDS ORDERED: Cyclobenzaprine 10 MG TAB PO PRN (16:11)
[2018-05-12] MEDS ORDERED: Potassium Chloride 20 MEQ TAB PO SCH (21:00)
[2018-05-13] MEDS: Ondansetron ODT 4 MG TAB PO PRN (02:17)
[2018-05-13] MEDS: traMADol HCl 50 MG TAB PO SCH ×4 (06:11→23:18)
[2018-05-13] MEDS: Ibuprofen 800 MG TAB PO SCH ×3 (06:15→22:21)
[2018-05-13] MEDS: metroNIDAZOLE 500 MG in Premix Bag 1 BAG IVPB SCH (06:15)
[2018-05-13] MEDS: Acetaminophen 500 MG TAB PO SCH ×4 (06:15→23:18)
[2018-05-13 06:43] LABS: #Eosinphils 0.3 thou/uL (0.0-0.7); #Lymphocytes 2.2 thou/uL (1.20-3.40); #Monocytes 1.1 thou/uL (0.11-0.59); #Neutrophils 11.7 thou/uL (1.40-6.50); %Basophils 0.3 % (0.0-1.0); %Eosinophils 2.1 % (0.0-10.0); %Lymphocytes 14.5 % (21.0-51.0); %Monocytes 7.2 % (0.0-10.0); %Neutrophils 75.9 % (42.0-75.0); Hemoglobin 10.7 g/dL (14.0-18.0); Mean Corpuscular HGB CONC 31.9 g/dL (32.0-36.0); Mean Corpuscular Hemoglobin 31.3 pg (27.0-31.0); Mean Platelet Volume 8.2 fL (7.4-10.4); Platelet Count 265 thou/uL (130-400); RBC Distribution Width 12.4 % (11.5-14.5); Red Blood Cell (RBC) Count 3.41 mill/uL (4.70-6.10); White Blood Cell (WBC) Count 15.4 thou/uL (4.8-10.8)
[2018-05-13 07:12] LABS: ALT (SGPT) 352 U/L (8-55); AST (SGOT) 228 U/L (5-34); Albumin 2.9 g/dL (3.5-5.0); Alkaline Phosphatase 105 U/L (40-150); Anion Gap 12 mmol/L (10-20); BUN (Urea Nitrogen) 14 mg/dL (8.4-25.7); Bilirubin, Total 0.8 mg/dL (0.2-1.2); Calc. Creatinine Clearance 222 mL/min (70-130); Calcium 8.4 mg/dL (7.8-10.44); Carbon Dioxide 27 mmol/L (22-29); Chloride 103 mmol/L (98-107); Estimated GFR-MDRD Greater than 90; Globulin 3.1 g/dL (2.4-3.5); Glucose 95 mg/dL (70-105); Potassium 3.5 mmol/L (3.5-5.1); Sodium 138 mmol/L (136-145)
--- NOTE | 2018-05-13 08:39 | PDOC.PN ---
- Subjective Encounter Start Date: 05/13/18 Encounter Start Time: 07:40 Patient seen and examined. No new complaints. No overnight events - Objective MAR Reviewed: Yes Vital Signs & Weight: Vital Signs (12 hours) Temp Pulse Resp BP Pulse Ox 05/13/18 08:00 98.5 F 84 18 115/77 93 L 05/13/18 03:52 97.9 F 81 20 96/61 91 L 05/13/18 00:16 97.7 F 80 16 118/81 93 L 05/12/18 21:01 91 L Weight Admit Weight 301 lb Weight 301 lb I&O: 05/12/18 05/13/18 05/14/18 06:59 06:59 06:59 Intake Total 5935 3800 Output Total 925 70 Balance 5010 3730 Result Diagrams: 05/13/18 06:30 05/13/18 06:30 Phys Exam - Physical Examination Constitutional: NAD HEENT: PERRLA, moist MMs, sclera anicteric Neck: no JVD, supple Respiratory: no wheezing, no rales, no rhonchi Cardiovascular: RRR, no significant murmur, no rub Gastrointestinal: soft, non-tender, no distention, positive bowel sounds Musculoskeletal: no edema, pulses present Neurological: non-focal, normal sensation, moves all 4 limbs Lymphatic: no nodes Psychiatric: normal affect, A&O x 3 Skin: no rash, normal turgor Dx/Plan (1) Sepsis Code(s): A41.9 - SEPSIS, UNSPECIFIED ORGANISM Status: Acute Qualifiers: Sepsis type: Escherichia coli Qualified Code(s): A41.51 - Sepsis due to Escherichia coli [E. coli] Comment: due to acute cholecystitis (2) Acute cholecystitis Code(s): K81.0 - ACUTE CHOLECYSTITIS Status: Acute Comment: with abnormal LFT, and clinically RUQ pain, fever with sepsis criteria on admission, now on rocephin, flagyl, levaquin, s/p open chlecystectomy (3) Morbid obesity with BMI of 40.0-44.9, adult Code(s): E66.01 - MORBID (SEVERE) OBESITY DUE TO EXCESS CALORIES; Z68.41 - BODY MASS INDEX (BMI) 40.0-44.9, ADULT Status: Chronic Comment: dietary education and weight loss education given (4) Hypertension Code(s): I10 - ESSENTIAL (PRIMARY) HYPERTENSION Status: Chronic Comment: with hypertensive urgency due to his level of pain, will monitor and start antihypertensive meds this admission (5) Dyslipidemia Code(s): E78.5 - HYPERLIPIDEMIA, UNSPECIFIED Status: Chronic - Plan cont current plan of care, continue antibiotics, incentive spirometry * medication reviewed as below * symptomatic treatment * on discharge consider levaquin for 7 more days. Review of Systems - Review of Systems ENT: negative: Ear Pain, Ear Discharge, Nose Pain, Nose Discharge, Nose Congestion, Mouth Pain, Mouth Swelling, Throat Pain, Throat Swelling, Other Respiratory: negative: Cough, Dry, Shortness of Breath, Hemoptysis, SOB with Excertion, Pleuritic Pain, Sputum, Wheezing Cardiovascular: negative: chest pain, palpitations, orthopnea, paroxysmal nocturnal dyspnea, edema, light headedness, other Gastrointestinal: negative: Nausea, Vomiting, Abdominal Pain, Diarrhea, Constipation, Melena, Hematochezia, Other Genitourinary: negative: Dysuria, Frequency, Incontinence, Hematuria, Retention , Other Musculoskeletal: negative: Neck Pain, Shoulder Pain, Arm Pain, Back Pain, Hand Pain, Leg Pain, Foot Pain, Other Skin: negative: Rash, Lesions, Abe, Bruising, Other - Medications/Allergies Allergies/Adverse Reactions: Allergies Allergy/AdvReac Type Severity Reaction Status Date / Time Penicillins Allergy swelling Verified 05/10/18 04:56 Medications: Current Medications Acetaminophen (Tylenol) 1,000 mg PO Q6HR [facility] Last Admin: 05/13/18 06:15 Dose: 1,000 mg Albuterol/Ipratropium (Duoneb) 3 ml NEB Q6H PRN PRN Reason: SOB &/or Wheezing Amlodipine Besylate (Norvasc) 10 mg PO DAILY [facility] Last Admin: 05/12/18 08:25 Dose: 10 mg Artificial Tears (Tears Naturale) 2 drop EA EYE PRN PRN PRN Reason: Dry Eyes Bisacodyl (Dulcolax) 10 mg PO DAILYPRN PRN PRN Reason: Constipation Clonidine (Catapres) 0.1 mg PO Q4H PRN PRN Reason: SBP Greater Than 170 Cyclobenzaprine HCl (Flexeril) 10 mg PO TID PRN PRN Reason: Muscle Spasm Diphenhydramine HCl (Benadryl) 25 mg IVP Q3H PRN PRN Reason: Itching Diphenhydramine HCl (Benadryl) 25 mg PO Q3H PRN PRN Reason: Itching Diphenhydramine HCl (Benadryl) 25 mg IM Q3H PRN PRN Reason: Itching Enoxaparin Sodium (Lovenox) 40 mg SC 0900 [facility] Last Admin: 05/12/18 08:24 Dose: 40 mg Guaifenesin (Robitussin Sf) 200 mg PO Q4H PRN PRN Reason: Cough Ceftriaxone Sodium 1 gm/ (Sodium Chloride) 100 mls @ 200 mls/hr IVPB Q24HR [facility] Last Admin: 05/12/18 11:25 Dose: 100 mls Metronidazole 500 mg/ Device 100 mls @ 100 mls/hr IVPB Q6HR [facility] Last Admin: 05/13/18 06:15 Dose: 100 mls Levofloxacin 500 mg/ Device 100 mls @ 100 mls/hr IVPB 1400 [facility] Last Admin: 05/12/18 14:29 Dose: 100 mls Ibuprofen (Motrin) 800 mg PO Q8HR [facility] Last Admin: 05/13/18 06:15 Dose: 800 mg Loperamide HCl (Imodium) 2 mg PO PRN PRN PRN Reason: Diarrhea/Loose Stools Loratadine (Claritin) 10 mg PO DAILYPRN PRN PRN Reason: Sinus Symptoms Mineral Oil/White Petrolatum (Eucerin Cream) 0 gm TOP BIDPRN PRN PRN Reason: Dry Skin Morphine Sulfate (Morphine) 4 mg SLOW IVP Q4H PRN PRN Reason: Breakthrough Pain Naloxone HCl (Narcan) 0.2 mg IV Q5MIN PRN PRN Reason: Opiate Reversal Ondansetron HCl (Zofran Odt) 4 mg PO Q6H PRN PRN Reason: Nausea/Vomiting Last Admin: 05/13/18 02:17 Dose: 4 mg Ondansetron HCl (Zofran) 4 mg IVP Q6H PRN PRN Reason: Nausea/Vomiting Promethazine HCl (Phenergan) 12.5 mg IM Q4H PRN PRN Reason: Nausea/Vomiting Senna/Docusate Sodium (Senokot S) 2 tab PO BID PRN PRN Reason: Constipation Sodium Chloride (Flush - Normal Saline) 10 ml IVF Q12HR [facility] Last Admin: 05/12/18 21:01 Dose: 10 ml Sodium Chloride (Flush - Normal Saline) 10 ml IVF PRN PRN PRN Reason: Saline Flush Last Admin: 05/10/18 05:26 Dose: 10 ml Sodium Chloride ([place] Nasal [place] 0.65%) 0 ml EA NARE QIDPRN PRN PRN Reason: Nasal Congestion Throat Lozenges (Cepastat Lozenges) 1 melyssa PO Q2H PRN PRN Reason: Sore Throat Tramadol HCl (Ultram) 100 mg PO Q6HR [facility] Last Admin: 05/13/18 06:11 Dose: 100 mg Zolpidem Tartrate (Ambien) 5 mg PO HSPRN PRN PRN Reason: Insomnia
[2018-05-13] MEDS: Enoxaparin Sodium 40 MG/0.4 ML SYRINGE SC SCH (09:05)
[2018-05-13] MEDS: Amlodipine 10 MG TAB PO SCH (09:05)
[2018-05-13] MEDS: cefTRIAXone\\ROCEPHIN 1 GM in Sodium Chloride 0.9% 100 ML IVPB SCH (10:30)
--- NOTE | 2018-05-13 10:35 | DIS ---
PRIMARY CARE PHYSICIAN: [facility] call admission. DATE OF ADMISSION: 05/10/2018 DATE OF DISCHARGE: 05/13/2018 DISCHARGE DISPOSITION: Home. PRIMARY DISCHARGE DIAGNOSES: 1. Acute cholecystitis, status post open cholecystectomy. 2. Sepsis due to problem #1. 3. Abnormal liver function tests due to problem #1. 4. Hypertension, which was related with his level of pain. SECONDARY DISCHARGE DIAGNOSES: Morbid obesity with body mass index 43, history of dyslipidemia. PRIMARY PROCEDURE/OPERATION: Open cholecystectomy by Dr. Mcdaniels and intraoperative cholangiogram. RADIOLOGICAL INVESTIGATION: Chest x-ray normal. Abdomen and pelvis CT scan showed findings suggesti ve of acute cholecystitis, fatty liver and diverticulosis. SIGNIFICANT LABORATORY DATA: WBC 15.4, hemoglobin 10.7, platelet 265. Sodium 138, potassium 3.5, BU N 14, creatinine 0.71, calcium 8.4, AST 228, ALT 352, alkaline phosphatase 105, albumin 2.9. DISCHARGE MEDICATIONS: Levaquin 750 mg p.o. daily for 7 days. Pain medication will defer to primary team. CONTRAINDICATIONS: None. CODE STATUS: FULL CODE. INPATIENT CONSULTANTS: Dr. Mcdaniels was primary while in hospital. [facility] Team was consulted for [facility] comanagement. TEST RESULTS PENDING ON DISCHARGE: None. ALLERGIES: PENICILLIN. DISCHARGE PLAN: Post hospital, the patient will follow up with Dr. Mcdaniels as instructed. HOSPITAL COURSE: A 57-year-old male who was admitted under Dr. Mcdaniels. The patient was having abdo brenda pain and fever. He was also having nausea and vomiting. All of his symptoms were going on for about a week. On admission, he was septic. He was taken for laparoscopic cholecystectomy, but conv erted to open cholecystectomy. [facility] Team was consulted for medical comanagement. Initially, the santosh preston's blood pressure was very high, but that was attributed to be due to his level of pain, but sub sequently when his surgery was done and when he was observed on surgical floor he did not have any hy pertension and that is why he did not require any blood pressure medication. While in hospital he wa s given amlodipine, but on discharge, we did not prescribe any antihypertensive medication and we adv ised him to monitor his blood pressure at home carefully and follow up with primary care physician. He will follow up with Dr. Mcdaniels as instructed. Overall, the patient is doing very well. If surge on is okay, then the patient probably can be discharged home later on today. The patient is seen and examined at bedside today. Please see my progress note from today for furthe r details.
--- NOTE | 2018-05-13 13:25 | PRG ---
DATE OF SERVICE: 05/13/2018 The patient is admitted to medicine, Dr. Celaya. SUBJECTIVE: Mr. Avendaño is a 57-year-old male who is postop day #3 status post laparoscopic converted to open cholecystectomy. The patient is awake, alert, tolerating a diet. He is off IV fluids. Still has a right IJ in place. His pain is controlled. He has had 3 bowel movements overnight. The patient states that he is improving. His dressings are dry. Vital signs have remained stable. OBJECTIVE: VITAL SIGNS: From this morning: Blood pressure 115/77, heart rate is 84, temperature is 98.5, O2 sat is 93% on room air, he is breathing 18 times per minute. GENERAL: A 57-year-old male sitting up in bed, in no acute distress, has abdominal binder in place. HEENT: Normocephalic. NECK: Trachea is midline. No JVD is appreciated. CHEST: Rise and fall out breath sounds. LUNGS: Clear to auscultation upper and lower bilaterally. CARDIOVASCULAR: Regular rate and rhythm. No murmurs are appreciated. ABDOMEN: Slightly tender. Dressings are dry. He has an abdominal binder in place and soft. Abdomen is protuberant and obese. Pelvis is stable. MUSCULOSKELETAL: Moves extremities well. Strong pulses. PSYCHIATRIC: Normal mood and affect. NEUROLOGIC: Alert and oriented to person, place, time, and event. SKIN: [place], warm and dry. LABORATORY DATA: From today: White blood cell count of 15.4, hemoglobin and hematocrit 10.7 and 33.4 respectively, platelets are 265. AST, ALT continue to improve at 228 and 352 respectively. Bilirubin total was 0.8 this morning. Sodium is 138, potassium was 3.5, chloride is 103, CO2 is 27, BUN is 14 and creatinine 0.71, glucose is 95. IMPRESSION: 1. Postop day #3 status post open cholecystectomy. 2. Hemodynamically stable patient. 3. Hyperkalemia that is resolving. 4. Transaminitis that is resolving. PLAN: 1. We will discontinue IV fluids and parenteral pain control. 2. Continue advance diet. 3. Change antibiotics to Cipro and Flagyl, recommend 5 day outpatient course. 4. Increase activity. 5. Remainder per the primary team. MTDD
[2018-05-13] MEDS: metroNIDAZOLE 500 MG TAB PO SCH ×2 (14:46→20:37)
[2018-05-13] MEDS: Ciprofloxacin 500 MG TAB PO SCH (20:37)
[2018-05-14] MEDS: Ondansetron ODT 4 MG TAB PO PRN ×2 (00:25→12:56)
[2018-05-14] MEDS: traMADol HCl 50 MG TAB PO SCH ×2 (05:27→12:53)
[2018-05-14] MEDS: Acetaminophen 500 MG TAB PO SCH ×2 (05:27→12:52)
[2018-05-14] MEDS: Ibuprofen 800 MG TAB PO SCH (05:28)
[2018-05-14] MEDS: Ciprofloxacin 500 MG TAB PO SCH (05:28)
[2018-05-14 08:20] LABS: #Eosinphils 0.4 thou/uL (0.0-0.7); #Lymphocytes 1.7 thou/uL (1.20-3.40); #Neutrophils 9.8 thou/uL (1.40-6.50); %Basophils 0.4 % (0.0-1.0); %Eosinophils 3.3 % (0.0-10.0); %Lymphocytes 13.3 % (21.0-51.0); %Monocytes 7.8 % (0.0-10.0); %Neutrophils 75.2 % (42.0-75.0); Hemoglobin 9.9 g/dL (14.0-18.0); Mean Corpuscular HGB CONC 32.1 g/dL (32.0-36.0); Mean Corpuscular Hemoglobin 31.2 pg (27.0-31.0); Mean Corpuscular Volume 97.2 fL (78.0-98.0); Mean Platelet Volume 7.6 fL (7.4-10.4); Platelet Count 272 thou/uL (130-400); RBC Distribution Width 12.5 % (11.5-14.5); Red Blood Cell (RBC) Count 3.16 mill/uL (4.70-6.10)
--- NOTE | 2018-05-14 09:31 | PDOC.PN ---
- Subjective Encounter Start Date: 05/14/18 Encounter Start Time: 08:00 Patient seen and examined. No new complaints. No overnight events - Objective MAR Reviewed: Yes Vital Signs & Weight: Vital Signs (12 hours) Temp Pulse Resp BP Pulse Ox 05/14/18 07:30 98.2 F 74 22 H 127/84 92 L 05/14/18 04:05 97.8 F 85 16 101/66 92 L 05/14/18 00:11 97.8 F 77 20 111/73 90 L Weight Admit Weight 301 lb Weight 301 lb I&O: 05/13/18 05/14/18 05/15/18 06:59 06:59 06:59 Intake Total 3800 1450 Output Total 70 25 Balance 3730 1425 Result Diagrams: 05/14/18 08:00 05/13/18 06:30 Phys Exam - Physical Examination Constitutional: NAD HEENT: PERRLA, moist MMs, sclera anicteric Neck: no JVD, supple Respiratory: no wheezing, no rales, no rhonchi Cardiovascular: RRR, no significant murmur, no rub Gastrointestinal: soft, non-tender, no distention, positive bowel sounds surgical site clean Musculoskeletal: no edema, pulses present Neurological: non-focal, normal sensation, moves all 4 limbs Psychiatric: normal affect, A&O x 3 Skin: no rash, normal turgor Dx/Plan (1) Sepsis Code(s): A41.9 - SEPSIS, UNSPECIFIED ORGANISM Status: Acute Qualifiers: Sepsis type: Escherichia coli Qualified Code(s): A41.51 - Sepsis due to Escherichia coli [E. coli] Comment: due to acute cholecystitis (2) Acute cholecystitis Code(s): K81.0 - ACUTE CHOLECYSTITIS Status: Acute Comment: with abnormal LFT, and clinically RUQ pain, fever with sepsis criteria on admission, now on rocephin, flagyl, levaquin, s/p open chlecystectomy (3) Morbid obesity with BMI of 40.0-44.9, adult Code(s): E66.01 - MORBID (SEVERE) OBESITY DUE TO EXCESS CALORIES; Z68.41 - BODY MASS INDEX (BMI) 40.0-44.9, ADULT Status: Chronic Comment: dietary education and weight loss education given (4) Hypertension Code(s): I10 - ESSENTIAL (PRIMARY) HYPERTENSION Status: Chronic Comment: with hypertensive urgency due to his level of pain, will monitor and start antihypertensive meds this admission (5) Dyslipidemia Code(s): E78.5 - HYPERLIPIDEMIA, UNSPECIFIED Status: Chronic - Plan cont current plan of care, continue antibiotics * medication reviewed as below * symptomatic treatment * stable for discharge if surgeon OK. Review of Systems - Review of Systems ENT: negative: Ear Pain, Ear Discharge, Nose Pain, Nose Discharge, Nose Congestion, Mouth Pain, Mouth Swelling, Throat Pain, Throat Swelling, Other Respiratory: negative: Cough, Dry, Shortness of Breath, Hemoptysis, SOB with Excertion, Pleuritic Pain, Sputum, Wheezing Cardiovascular: negative: chest pain, palpitations, orthopnea, paroxysmal nocturnal dyspnea, edema, light headedness, other Gastrointestinal: negative: Nausea, Vomiting, Abdominal Pain, Diarrhea, Constipation, Melena, Hematochezia, Other Genitourinary: negative: Dysuria, Frequency, Incontinence, Hematuria, Retention , Other Musculoskeletal: negative: Neck Pain, Shoulder Pain, Arm Pain, Back Pain, Hand Pain, Leg Pain, Foot Pain, Other Skin: negative: Rash, Lesions, Abe, Bruising, Other - Medications/Allergies Allergies/Adverse Reactions: Allergies Allergy/AdvReac Type Severity Reaction Status Date / Time Penicillins Allergy swelling Verified 05/10/18 04:56 Medications: Current Medications Acetaminophen (Tylenol) 1,000 mg PO Q6HR REPLACED BY [facility] Last Admin: 05/14/18 05:27 Dose: 1,000 mg Albuterol/Ipratropium (Duoneb) 3 ml NEB Q6H PRN PRN Reason: SOB &/or Wheezing Artificial Tears (Tears Naturale) 2 drop EA EYE PRN PRN PRN Reason: Dry Eyes Bisacodyl (Dulcolax) 10 mg PO DAILYPRN PRN PRN Reason: Constipation Ciprofloxacin (Cipro) 500 mg PO BID@0600,1999 REPLACED BY [facility] Stop: 05/18/18 20:01 Last Admin: 05/14/18 05:28 Dose: 500 mg Clonidine (Catapres) 0.1 mg PO Q4H PRN PRN Reason: SBP Greater Than 170 Cyclobenzaprine HCl (Flexeril) 10 mg PO TID PRN PRN Reason: Muscle Spasm Diphenhydramine HCl (Benadryl) 25 mg IVP Q3H PRN PRN Reason: Itching Diphenhydramine HCl (Benadryl) 25 mg PO Q3H PRN PRN Reason: Itching Diphenhydramine HCl (Benadryl) 25 mg IM Q3H PRN PRN Reason: Itching Enoxaparin Sodium (Lovenox) 40 mg SC 0900 [facility]PLACED [facility] Last Admin: 05/13/18 09:05 Dose: 40 mg Guaifenesin (Robitussin Sf) 200 mg PO Q4H PRN PRN Reason: Cough Ibuprofen (Motrin) 800 mg PO Q8HR REPLACED [facility] Last Admin: 05/14/18 05:28 Dose: 800 mg Loperamide HCl (Imodium) 2 mg PO PRN PRN PRN Reason: Diarrhea/Loose Stools Loratadine (Claritin) 10 mg PO DAILYPRN PRN PRN Reason: Sinus Symptoms Metronidazole (Flagyl) 500 mg PO TID REPLACED BY [facility] Stop: 05/18/18 15:01 Last Admin: 05/13/18 20:37 Dose: 500 mg Mineral Oil/White Petrolatum (Eucerin Cream) 0 gm TOP BIDPRN PRN PRN Reason: Dry Skin Morphine Sulfate (Morphine) 4 mg SLOW IVP Q4H PRN PRN Reason: Breakthrough Pain Naloxone HCl (Narcan) 0.2 mg IV Q5MIN PRN PRN Reason: Opiate Reversal Ondansetron HCl (Zofran Odt) 4 mg PO Q6H PRN PRN Reason: Nausea/Vomiting Last Admin: 05/14/18 00:25 Dose: 4 mg Ondansetron HCl (Zofran) 4 mg IVP Q6H PRN PRN Reason: Nausea/Vomiting Promethazine HCl (Phenergan) 12.5 mg IM Q4H PRN PRN Reason: Nausea/Vomiting Senna/Docusate Sodium (Senokot S) 2 tab PO BID PRN PRN Reason: Constipation Sodium Chloride (Flush - Normal Saline) 10 ml IVF Q12HR REPLACED BY [facility] Last Admin: 05/13/18 20:38 Dose: Not Given Sodium Chloride (Flush - Normal Saline) 10 ml IVF PRN PRN PRN Reason: Saline Flush Last Admin: 05/10/18 05:26 Dose: 10 ml Sodium Chloride ([place] Nasal [place] 0.65%) 0 ml EA NARE QIDPRN PRN PRN Reason: Nasal Congestion Throat Lozenges (Cepastat Lozenges) 1 melyssa PO Q2H PRN PRN Reason: Sore Throat Tramadol HCl (Ultram) 100 mg PO Q6HR [facility] Last Admin: 05/14/18 05:27 Dose: 100 mg Zolpidem Tartrate (Ambien) 5 mg PO HSPRN PRN PRN Reason: Insomnia
[2018-05-14] MEDS: Enoxaparin Sodium 40 MG/0.4 ML SYRINGE SC SCH (09:36)
[2018-05-14] MEDS: metroNIDAZOLE 500 MG TAB PO SCH (09:36)
[2018-05-14 11:46] VITALS: BP 145/88; TEMP 97.7
--- NOTE | 2018-05-14 16:40 | PRG ---
DATE OF SERVICE: 05/14/2018 SUBJECTIVE: This is a 57-year-old male who is postop day #4 status post laparoscopic converted to op en cholecystectomy. There were no acute overnight events. The patient states his pain has been well controlled. He is tolerating his diet. OBJECTIVE: VITAL SIGNS: Temperature 98.2, pulse 74, respirations 16-22, O2 sat 92%-97% on room air, blood press ure 127/84. GENERAL: Elderly appearing male in no acute distress, resting in bed. PULMONARY: Normal work of breathing. Symmetric rise. CARDIOVASCULAR: Regular rate and rhythm. GASTROINTESTINAL: Abdomen is soft, nontender, nondistended. Surgical site is clean, dry, and intact . Surgical dressings were changed at bedside. No erythema, fluctuance or drainage. MUSCULOSKELETAL: Moves all extremities x4. NEUROLOGIC: No focal deficit noted. LABORATORY DATA: WBC 13.0, hemoglobin 9.9, hematocrit 30.7 and platelet count 272. ASSESSMENT: Postop day #4, status post open cholecystectomy. PLAN: Continue p.o. antibiotics for a total of 5 days. From a surgical standpoint, the patient appe ars stable for discharge. Patient should be discharged on pain regimen similar to that of his inpati ent stay. He should follow up with Dr. Mcdaniels in approximately 2 weeks. Postoperative teaching was provided to the patient. All questions were answered at the time of this dictation. The patient wa s seen and evaluated with Dr. Lara.
--- NOTE | 2018-05-16 10:21 | ADD-DIS ---
ADDENDUM: Please see my discharge summary dictated yesterday for more detail. On discharge, we also added Flagyl 500 mg p.o. t.i.d. for 5 more days as well as we also prescribed P rotonix, Zofran and Tylenol No. 3. Surgeon already cleared him for discharge. His WBC is better than yesterday and his LFT is also impr oving. Patient is asymptomatic, ambulatory, tolerating p.o. well, and he is energetic to go home today.
== END 2018-05-14 13:48 | disposition home or self-care (01) | DRG 853 ==
LOC: ERS 00:07 → OBSVTOIN 03:11 → 2SW 03:11 → ERHOLD 03:24 → 2SW 04:13 → SURG A 20:39
PROVIDERS: ADMIT Surgery; ATTEND Surgery
PROC: 0FT40ZZ Resection of Gallbladder, Open Approach (ICD-10-PCS; principal; 2018-05-10)
PROC: 0FJ44ZZ Inspection of Gallbladder, Percutaneous Endoscopic Approach (ICD-10-PCS; 2018-05-10)
PROC: BF101ZZ Fluoroscopy of Bile Ducts using Low Osmolar Contrast (ICD-10-PCS; 2018-05-10)
PROC: 30243L1 Transfusion of Nonautologous Fresh Plasma into Central Vein, Percutaneous Approach (ICD-10-PCS; 2018-05-10)
PROC: 30243N1 Transfusion of Nonautologous Red Blood Cells into Central Vein, Percutaneous Approach (ICD-10-PCS; 2018-05-10)
DX: A41.51 Sepsis due to Escherichia coli [E. coli] (principal); S35.299A Unspecified injury of branches of celiac and mesenteric artery, initial encounter; K80.00 Calculus of gallbladder with acute cholecystitis without obstruction; Z68.41 Body mass index [BMI] 40.0-44.9, adult; K82.A1 Gangrene of gallbladder in cholecystitis; Z53.31 Laparoscopic surgical procedure converted to open procedure; I10 Essential (primary) hypertension; E87.6 Hypokalemia; R74.0 Nonspecific elevation of levels of transaminase and lactic acid dehydrogenase [LDH]; E78.5 Hyperlipidemia, unspecified; R73.03 Prediabetes; E66.01 Morbid (severe) obesity due to excess calories; Z82.49 Family history of ischemic heart disease and other diseases of the circulatory system; Z88.0 Allergy status to penicillin; Y83.8 Other surgical procedures as the cause of abnormal reaction of the patient, or of later complication, without mention of misadventure at the time of the procedure
CPT/HCPCS: 36415; 36416; 36430; 47531; 47532; 71045; 71046; 80053; 83036; 83690; 84484; 85025; 86850; 86900; 86901; 87070; 87077; 87186; 87205; 88304; 93005; 93010; 96374; 99406; J0131; J0696; J1610; J1650; J1885; J1956; J2001; J2250; J2270; J2370; J2405; J2704; J3010; J7050; P9016; P9059; Q0162; Q9961; S0028